=== PATIENT | female | born 1975 | race Caucasian/White ===

== ENCOUNTER → 2016-09-24 | Outpatient (REF) | payer OTHER | LOC: M LAB REF 13:55 | PROVIDERS: ATTEND Nurse Practitioner Family | DX: Z11.3 Encounter for screening for infections with a predominantly sexual mode of transmission (principal) ==

== ENCOUNTER 2017-02-03 19:45 | Emergency (ER) | payer OTHER ==
[~2017-02-03] VITALS: Ht 162.6 cm; Wt 76.4 kg
[2017-02-03 19:47] VITALS: BP 153/96
[2017-02-03] MEDS ORDERED: TIZA4CAP3 PO (19:57)
[2017-02-03] MEDS ORDERED: TRAM50TA2 PO (19:57)
[2017-02-03] MEDS ORDERED: BUPR150T5 PO (19:57)
== END 2017-02-03 21:16 | disposition left against medical advice (07) ==
LOC: M ED 19:45
DX: F33.9 Major depressive disorder, recurrent, unspecified (principal); F41.9 Anxiety disorder, unspecified; G47.9 Sleep disorder, unspecified; M51.9 Unspecified thoracic, thoracolumbar and lumbosacral intervertebral disc disorder; G89.29 Other chronic pain; Z79.899 Other long term (current) drug therapy

== ENCOUNTER 2017-02-05 11:19 | Inpatient (IN) | payer OTHER ==
[~2017-02-05] VITALS: Ht 162.6 cm; Wt 76.0 kg
[~2017-02-05 11:19] MED LIST: BUPR150T5 PO; TIZA4CAP3 PO; TRAM50TA2 PO
[2017-02-05] MEDS ORDERED: HYDR-3363 PO (11:32)
[2017-02-05 12:32] LABS: MEAN CORPUSCULAR HEMOGLOBIN 31.3 pg (27.0-33.0); MEAN CORPUSCULAR VOLUME 89.4 fl (80.0-96.0); PLATELET COUNT, AUTOMATED 292 10^3/uL (150-450); RED CELL DISTRIBUTION WIDTH 12.2 % (11.5-14.5)
[2017-02-05 12:51] LABS: CONTROL LINE HCG INT CTR LINE PRESENT
[2017-02-05] MEDS ORDERED: EXCETAB80 PO (13:04)
[2017-02-05 13:06] LABS: ALBUMIN 4.3 GM/DL (3.2-5.2); ALBUMIN/GLOBULIN RATIO 1.43 (1.00-1.93); ALKALINE PHOSPHATASE 72 U/L (45-117); ALT/SGPT 28 U/L (12-78); ANION GAP 7 MEQ/L (8-16); AST/SGOT 13 U/L (15-37); BILIRUBIN,DIRECT 0.1 MG/DL (0.0-0.2); BILIRUBIN,TOTAL 0.4 MG/DL (0.2-1.0); BLOOD UREA NITROGEN 9 MG/DL (7-18); CARBON DIOXIDE LEVEL 24 MEQ/L (21-32); CHLORIDE LEVEL 107 MEQ/L (98-107); CREATININE FOR GFR 0.86 MG/DL (0.55-1.02); GLOMERULAR FILTRATION RATE > 60.0 (>58); GLUCOSE, FASTING 108 MG/DL (70-105); POTASSIUM SERUM 4.1 MEQ/L (3.5-5.1); SODIUM LEVEL 138 MEQ/L (136-145); TOTAL PROTEIN 7.3 GM/DL (6.4-8.2)
[2017-02-05 13:18] LABS: METHADONE URINE NEGATIVE (NEGATIVE)
[2017-02-05 16:30] VITALS: BP 135/80
[2017-02-05] MEDS ORDERED: IBUPROFEN 600 MG TAB PO ONE (17:30)
[2017-02-05 18:29] VITALS: BP 135/88
[2017-02-05] MEDS ORDERED: ACETAMINOPHEN TAB 650MG DOSE (2X325MG) PO PRN (19:00)
[2017-02-05] MEDS ORDERED: MOM 30ML SUSPENSION UDC PO PRN (19:00)
[2017-02-05] MEDS ORDERED: MAALOX 30 ML SUSP *UDC PO PRN (19:00)
[2017-02-05] MEDS ORDERED: traZODone 50 MG TAB PO PRN (19:00)
[2017-02-05] MEDS: tiZANidine 4 MG TAB PO PRN (21:28)
[2017-02-05] MEDS: traMADol 50 MG TAB PO PRN (21:34)
[2017-02-05] MEDS: buPROPion **SR TABLET** (ZYBAN) 150MG PO SCH (21:34)
[2017-02-06 06:49] VITALS: BP 131/76
[2017-02-06] MEDS: buPROPion **SR TABLET** (ZYBAN) 150MG PO SCH ×3 (08:15→20:52)
[2017-02-06] MEDS: traMADol 50 MG TAB PO PRN ×2 (08:18→20:52)
[2017-02-06] MEDS: hydrOXYzine 25 MG TAB PO PRN ×2 (08:18→18:17)
--- NOTE | 2017-02-06 09:08 | HPEPDOC ---
[facility] Medical History & Physical Date of Admission Feb 05, 2017 History and Physical PCP: Stalin Carney MAINTENANCE WELDER ATTENDING: Dr. Nicolás Ortiz HPI: 41yoF admitted to [facility] for unspecified depressive disorder, being medically examined today. Patient does not voice any medical complaints today. She is reluctant to answer questions or participate with interview. She states she has pain "everywhere". She is unable to provide any further details. She states she follows with Dr. Sun for her chronic pain. Denies any fevers, chills, weakness, fatigue, CARTER, CP, SOB, cough, palpitations, abdominal pain, N/V/D or changes in bowel or bladder habits. PMHx: Depression Anxiety Chronic pain Chronic headache PSHX: Cholecystectomy SOCHX: Resides in: [place] Marital Status: Single Kids: 5 Employment: Unemployed Tobacco use: Uses e-cigarette ETOH: 4 drinks per year Illicit Drugs: Denies IV Drug Use: Denies Tattoos done unprofessionally: Denies FAMHX: Mother: Unknown Father: , brain aneurysm Siblings: 6 sisters, 2 brothers Alive, unknown Children: Alive, well Unexpected deaths due to medical reasons: None. ROS: As noted in HPI, otherwise 11pt ROS of systems reviewed and remarkable only for LMP unknown. PE: Pt with limited participation with exam. GEN: 41 yoF, appears stated age. Well-nourished, well developed. No acute distress. Alert and oriented x 3. She is agitated throughout the interview and exam. She is reluctant to answer questions. She avoids eye contact. HEENT: Normocephalic, atraumatic. Pupils are equal, round, and reactive to light. No nystagmus appreciated. Sclera are nonicteric. Conjunctiva without injection. EACs both patent BL. TMs both visualized and alarcon with good cone of light, no bulging or erythema. No facial asymmetry. Moist mucous membranes. Pharynx pink and moist. Neck supple, trachea midline. CHEST: Regular rate and rhythm, +S1, +S2 LUNGS: Clear to auscultation bilaterally. No wheezes, rales, or rhonchi. Breathing appears symmetric and easy. Patient is speaking in full sentences. No accessory muscle use. ABD: NT. +Bowel sounds present. No rebound or guarding. No costovertebral angle tenderness. EXT: No lower extremity edema appreciated. SKIN: [place], dry, warm. No rashes observed. NEURO: No focal deficits appreciated. EKG: pending. A&P: 41yoF admitted to [facility] for unspecified depressive disorder 1. Psych. Plan per Psychiatry. Obtain baseline EKG to assure the safety of psychiatric medications as they can prolong the QT interval. 2. Nicotine dependence. Patch available. 3. Chronic pain. Follows with Dr. Sun for pain management. Patient is reporting persistent pain, and low back pain therefore will request pain management opinion. Currently patient remains on her outpatient regimen of tizanidine 4 mg 3 times a day as needed and tramadol 50 mg every 6 hours as needed. Patient states she uses Excedrin Migraine for chronic pain and takes 1 tablet twice a day as needed. ISTOP his access reference #[id number] indicating tramadol 50 mg quantity #120 dispensed 01/28/[address] Sun. Will request copy of last note from Dr Sun. 4. Follow up with PCP on discharge. 5. Staff member Nay PIERCE present throughout exam. Vital Signs Vital Signs Date Time Temp Pulse Resp B/P (MAP) Pulse Ox O2 Delivery O2 Flow Rate FiO2 02/06/17 08:18 16 02/06/17 06:49 99.1 73 131/76 (94) 02/05/17 18:29 97 Room Air Laboratory Data Labs 24H Laboratory Tests 2 02/05/17 12:20: Nucleated Red Blood Cells % (auto) 0.0, Anion Gap 7L, Glomerular Filtration Rate > 60.0, Calcium Level 9.0, Aspartate Amino Transf (AST/SGOT) 13L, Alanine Aminotransferase (ALT/SGPT) 28, Alkaline Phosphatase 72, Total Bilirubin 0.4, Direct Bilirubin 0.1, Total Protein 7.3, Albumin 4.3, Albumin/Globulin Ratio 1.43, Thyroid Stimulating Hormone (TSH) 0.956, Human Chorionic Gonadotropin, Qual NEGATIVE, Salicylates Level < 1.7L, Urine Amphetamines Screen NEGATIVE, Urine Benzodiazepines Screen NEGATIVE, Urine Opiates Screen NEGATIVE, Urine Methadone Screen NEGATIVE, Acetaminophen Level < 2.0L, Urine Barbiturates Screen NEGATIVE, Urine Phencyclidine Screen NEGATIVE, Urine Cocaine Metabolite Screen NEGATIVE, Urine Cannabinoids Screen NEGATIVE, Ethyl Alcohol Level < 0.003 CBC/BMP Laboratory Tests 02/05/17 12:20 Red Blood Count 4.54, Mean Corpuscular Volume 89.4, Mean Corpuscular Hemoglobin 31.3, Mean Corpuscular Hemoglobin Concent 35.0, Red Cell Distribution Width 12.2 Home Medications Scheduled Bupropion Hcl (Bupropion HCl Sr) 150 Mg Tab, 150 MG PO BID Scheduled PRN Acetaminophen/Aspirin/Caffein (Excedrin Migraine 250-250-65 mg) 1 Tab Tab, 1 TAB PO BID PRN for PAIN Hydroxyzine HCl (Hydroxyzine HCl) 25 Mg Tab, 25 MG PO Q8H PRN for ANXIETY Tizanidine Hydrochloride (Tizanidine HCl) 4 Mg Cap, 4 MG PO TID PRN for SPASMS Tramadol HCl (Tramadol HCl) 50 Mg Tab, 50 MG PO Q6H PRN for PAIN Allergies Coded Allergies: No Known Allergies (Unverified , 02/03/17) Lynn Lopez Feb 06, 2017 09:08
[2017-02-06] MEDS ORDERED: VENLAFAXINE **XR** 37.5 MG CAPSULE PO ONE (10:15)
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
[2017-02-06] MEDS: EXCEDRIN MIGRAINE TABLET PO PRN ×2 (15:08→20:52)
[2017-02-06 18:00] VITALS: BP 121/60
[2017-02-06] MEDS: traZODone 100 MG TAB PO SCH (20:52)
[2017-02-06] MEDS: tiZANidine 4 MG TAB PO PRN (20:52)
[2017-02-07 06:53] VITALS: BP 116/76
[2017-02-07] MEDS: VENLAFAXINE **XR** 75MG CAPSULE PO SCH (08:05)
[2017-02-07] MEDS: buPROPion **SR TABLET** (ZYBAN) 150MG PO SCH ×2 (08:05→21:24)
[2017-02-07] MEDS: traMADol 50 MG TAB PO PRN ×2 (08:05→21:25)
[2017-02-07] MEDS: hydrOXYzine 25 MG TAB PO PRN ×2 (08:20→16:35)
--- NOTE | 2017-02-07 15:21 | MHIPN ---
DATE: 02/07/2017 CHIEF COMPLAINT: Says feels okay. SUBJECTIVE: Seen for followup in the presence of staff. Says has felt cold while here. Indicates feels good as regard to her moods. Denies feeling depressed. Denies feeling suicidal. Says is sleeping okay. MENTAL STATUS EXAMINATION: Neat, cooperative, but superficially so, and often somewhat guarded. No agitation. No psychomotor retardation. Answers questions very briefly but coherently, mostly one-word answers. Denies any suicidal thoughts or intents. No homicidal ideas or intents. No evidence of any psychosis. Affect is incongruent with mood. Judgment and insight remain quite questionable. ASSESSMENT: 1. Major depressive disorder. 2. Posttraumatic stress disorder by history. PLAN: Continue current care. She has been started on venlafaxine at 75 mg daily, and I understand the plan is to taper the Wellbutrin slowly while building up the dose of the venlafaxine. She quite likely minimizes her difficulties. She is to be encouraged to participate in activities in the unit. VITAL SIGNS: Blood pressure 116/76, pulse 72, temperature 98.3.
[2017-02-07 18:06] VITALS: BP 113/61
[2017-02-07] MEDS: tiZANidine 4 MG TAB PO PRN (21:24)
[2017-02-07] MEDS: traZODone 100 MG TAB PO SCH (21:24)
[2017-02-08 06:00] VITALS: BP 94/51
[2017-02-08] MEDS: buPROPion **SR TABLET** (ZYBAN) 150MG PO SCH ×2 (08:52→21:37)
[2017-02-08] MEDS: VENLAFAXINE **XR** 75MG CAPSULE PO SCH (08:52)
[2017-02-08] MEDS: traMADol 50 MG TAB PO PRN ×2 (08:55→21:38)
--- NOTE | 2017-02-08 17:51 | MHIPN ---
DATE: 02/08/2017 CHIEF COMPLAINT: Says feels okay. SUBJECTIVE: Seen for followup, in the presence of staff. Says feels okay, and that her moods are good. She says sleep has been better, as is appetite. She also spoke of having tremors, says has had them for about a year or so, both hands. Says they tend to worsen when stressed. Says is not sure if her primary care is aware of this. Denies any history of family tremors. MENTAL STATUS EXAMINATION: Neat. Cooperative though somewhat superficially so, at times a bit guarded, answers questions briefly, logically, coherently. Affect is restricted but reactive. Does have tremors upper limbs. Denies any suicidal thoughts or intents. No homicidal ideas or intents. No evidence of any psychosis. Cognition grossly intact. Judgment and insight remain questionable. ASSESSMENT: 1. Major depressive disorder. 2. Posttraumatic stress disorder by history. PLAN: Continue cross tapering venlafaxine and Wellbutrin. I would suggest the venlafaxine is increased to a total of 112.5 mg tomorrow, the Wellbutrin decreased to 150 mg daily. Being on Wellbutrin may well cause tremors, but other causes ought to be assessed as well. I would suggest that she followup with primary care, and she may require an assessment by neurology as an outpatient. She is to be encouraged to participate in activities in the unit. She will be seeing the treatment team tomorrow.
[2017-02-08 18:00] VITALS: BP 110/54
[2017-02-08] MEDS: tiZANidine 4 MG TAB PO PRN (21:37)
[2017-02-08] MEDS: traZODone 100 MG TAB PO SCH (21:37)
[2017-02-09 06:31] VITALS: BP 98/50
[2017-02-09] MEDS: VENLAFAXINE **XR** 75MG CAPSULE PO SCH (08:43)
[2017-02-09] MEDS: traMADol 50 MG TAB PO PRN ×2 (08:43→21:55)
[2017-02-09] MEDS ORDERED: buPROPion **XL** TABLET 150MG (WELLBUTRIN XL) PO SCH (09:00)
[2017-02-09] MEDS ORDERED: VENLAFAXINE **XR** 37.5 MG CAPSULE PO SCH (09:00)
[2017-02-09] MEDS ORDERED: traZODone 25MG PER 1/2 TABLET PO PRN (09:30)
--- NOTE | 2017-02-09 14:47 | MHIPN ---
DATE OF SERVICE: 02/09/2017 41-year-old female with history of post-traumatic stress disorder (PTSD), depression, admitted to our unit with symptoms compatible with severe depression and suicidal ideation. MEDICATIONS: - Wellbutrin XL 100 mg by mouth daily - Trazodone 100 mg by mouth at bedtime - Effexor XR 75 mg by mouth every a.m. SUBJECTIVE: "I am feeling a little better, I am no longer crying all the time". OBJECTIVE: Patient continues depressed, but reports improvement. Patient is able to contact for safety during the interview. Patient denies side effects from the medications. Reports some degree of sedation in the morning secondary to trazodone. Patient appears to be motivated for treatment. Discussed the treatment plan with patient. MENTAL STATUS EXAMINATION: Patient is dressed in [facility]. Patient is clean and well groomed. Patient has fair eye contact. Speech is soft and monotone. Mood is depressed and anxious, but somewhat improved from admission. Affect is somewhat restricted. No delusions or hallucinations. 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 Patient is fully oriented. Associations are intact. Thinking is logically. Thought content is appropriate. Patient was able to contract for safety during the interview and denies suicidal or homicidal ideation. Insight and judgment is limited. ASSESSMENT: 1. Major depressive disorder. 2. Post-traumatic stress disorder (PTSD). PLAN: 1. Decrease Wellbutrin to 75 mg by mouth every a.m. 2. Decrease Trazodone to 50 mg by mouth at bedtime 3. Continue Effexor XR 75 mg by mouth every a.m. 4. Continue medication management, individual and group therapy.
[2017-02-09 18:00] VITALS: BP 131/72
[2017-02-09] MEDS ORDERED: tiZANidine 4 MG TAB PO SCH (21:00)
[2017-02-09] MEDS: traZODone 50 MG TAB PO SCH (21:54)
[2017-02-10 07:01] VITALS: BP 106/54
[2017-02-10] MEDS ORDERED: buPROPion 75 MG TAB PO SCH (09:00)
[2017-02-10] MEDS: VENLAFAXINE **XR** 75MG CAPSULE PO SCH (09:17)
[2017-02-10] MEDS: traMADol 50 MG TAB PO PRN ×2 (09:18→21:54)
[2017-02-10] MEDS: tiZANidine 4 MG TAB PO PRN ×2 (12:12→21:54)
--- NOTE | 2017-02-10 15:29 | IPN ---
DATE: 02/10/2017 A 41-year-old female with history of posttraumatic stress disorder (PTSD) and depression admitted to our unit with severe symptoms of depression and suicidal ideation. MEDICATIONS: - Effexor XR 75 mg by mouth every morning - Wellbutrin XL 75 mg by mouth daily tapering dose - trazodone 50 mg by mouth at bedtime SUBJECTIVE: "I'm feeling better, when can I be discharged?" OBJECTIVE: The patient is improving slowly. The patient is minimizing symptoms in order to be discharged soon. I am not sure if the patient's judgment call and statements are reliable. The patient has refused to sign release of information for her mother and ex-boyfriend. geriatric social worker reports that she is on probation but she did not tell anybody. It was found this morning after receiving a phone call. MENTAL STATUS EXAMINATION: The patient is dressed in [facility]. The patient is clean and well-groomed. She has fair eye contact. Speech is soft and monotone. Mood is depressed and anxious. Affect is restricted. No delusions or hallucinations. Memory, attention and concentration are fair. The patient is fully oriented. Associations are intact. Thinking is logical. Thought content is appropriate. The patient was able to contract for safety during the interview. She denies suicidal or homicidal ideation, but again she is focused on discharge and maybe not reliable. Insight and judgment is limited. ASSESSMENT: 1. Major depressive disorder. 2. Posttraumatic stress disorder (PTSD). PLAN: 1. Discontinue Wellbutrin. 2. Continue Effexor XR 75 mg by mouth every morning. 3. Continue trazodone 50 mg by mouth at bedtime. 4. Continue medication management, individual and group therapy.
[2017-02-10 18:00] VITALS: BP 118/71
[2017-02-10] MEDS: traZODone 50 MG TAB PO SCH (21:54)
[2017-02-11 06:38] VITALS: BP 96/53
[2017-02-11] MEDS: tiZANidine 4 MG TAB PO PRN ×2 (09:27→21:46)
[2017-02-11] MEDS: VENLAFAXINE **XR** 75MG CAPSULE PO SCH (09:27)
[2017-02-11] MEDS: traMADol 50 MG TAB PO PRN ×2 (09:27→21:46)
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
[2017-02-11 18:00] VITALS: BP 138/87
[2017-02-11] MEDS: traZODone 50 MG TAB PO SCH (21:45)
[2017-02-12 07:04] VITALS: BP 125/71
[2017-02-12] MEDS: traMADol 50 MG TAB PO PRN (08:34)
[2017-02-12] MEDS: tiZANidine 4 MG TAB PO PRN (08:34)
[2017-02-12] MEDS: VENLAFAXINE **XR** 75MG CAPSULE PO SCH (08:34)
[2017-02-12] MEDS ORDERED: VENL75CA47 PO (14:38)
[2017-02-12] MEDS ORDERED: TRAZO50TA PO (14:38)
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
--- NOTE | 2017-02-18 16:47 | CR ---
DATE OF CONSULTATION: 02/09/2017 CONSULTATION REPORT FOR: Dr. Carey CHIEF COMPLAINT: 1. Low back pain. 2. Right leg pain. HISTORY OF PRESENT ILLNESS: Carli is a pleasant 41-year-old female who suffers from chronic pain and follows with Dr. Sun in the [facility] for chronic pain. States that she uses tizanidine 4 mg as needed which is helpful. She also finds tramadol 50 mg every six hours as needed as helpful. Rating her pain level as a 6/10. Chief area of pain is right low back with radiation into right leg. Denies recent fever, illness or weight loss. Denies bowel or bladder incontinence. PAST MEDICAL HISTORY: 1. Headache. 2. Chronic pain. 3. Anxiety/depression. PAST SURGICAL HISTORY: 1. (C) section. 2. Cholecystectomy. SOCIAL HISTORY: Lives alone in [place]. States that she has five children that she has been recently estranged from. Denies problems with alcohol or drugs. FAMILY HISTORY: Mother is unknown. Father is due to brain aneurysm. Children are alive and well. Siblings are alive and medical history unknown. REVIEW OF SYSTEMS: An 11-point review of systems reviewed and remarkable only for complaints listed in the history of present illness (HPI). PHYSICAL EXAMINATION: The patient is a awake, alert and cooperative. VITAL SIGNS: Temperature 97.8, pulse 70, respiratory rate 20, blood pressure 98/50. CARDIAC: S1, S2, normal rate and rhythm. RESPIRATORY: Lung sounds clear. Respirations nonlabored. NEUROMUSCULAR: Muscle strength and tone of the upper and lower extremities 5/5. NEUROLOGIC: Deep tendon reflexes 1-2+ over 4, upper and lower extremities. Normal sensation to light touch, lower extremities. INSPECTION OF SPINE: Specific point tenderness noted over right sacroiliac joint (SIJ). Tenderness over lumbosacral (LS) axis and lumbosacral paraspinal region. Range of joint motion of the spine is limited with reports of increased pain with both flexion and extension at less than 45 degrees. ASSESSMENT: 1. Chronic low back pain. 2. Sacral iliac joint pain, right. PLAN: The patient states that she would never be interested in injection therapy. Recommend continuing current pain medications during inpatient stay. Continue use of tizanidine as needed for severe pain. Continue followup with Dr. Sun. Thank you for allowing us to participate in the care of your patient. If you have any questions or concerns, please do not hesitate to contact me. RORY
== END 2017-02-12 16:20 | disposition home or self-care (01) | DRG 754 ==
LOC: M ED 11:19 → M ED INP 16:19 → M PSY 17:35
PROVIDERS: ADMIT Psychiatry & Neurology Psychiatry; ATTEND Psychiatry & Neurology Psychiatry
DX: F32.9 Major depressive disorder, single episode, unspecified (principal); F17.290 Nicotine dependence, other tobacco product, uncomplicated; F43.10 Post-traumatic stress disorder, unspecified; G89.29 Other chronic pain; Z79.899 Other long term (current) drug therapy; Z90.49 Acquired absence of other specified parts of digestive tract

== ENCOUNTER → 2017-04-08 | Outpatient (REF) | payer MEDICAID, OTHER, SELFPAY ==
[~2017-04-08] MED LIST changes: +EXCETAB80 PO; +HYDR-3363 PO; +TRAZO50TA PO; +VENL75CA47 PO
== END ==
LOC: M LABDRAW1 11:40
PROVIDERS: ATTEND Physical Medicine & Rehabilitation
DX: M51.36 Other intervertebral disc degeneration, lumbar region (principal)

== ENCOUNTER → 2017-06-02 | Outpatient (CLI) | payer OTHER | LOC: M RAD 12:13 | DX: M47.812 Spondylosis without myelopathy or radiculopathy, cervical region (principal) | CPT/HCPCS: 72141 ==

== ENCOUNTER → 2018-07-28 | Outpatient (REF) | payer OTHER ==
[~2018-07-28] MED LIST changes: +TIZA4CAP PO; -TIZA4CAP3 PO
[2018-07-28 19:51] LABS: BASO # 0.1 10^3/uL (0.0-0.2); BASO % 0.6 % (0.0-1.0); EOS # 0.1 10^3/uL (0.0-0.50); EOS % 1.3 % (0.0-3.0); HEMATOCRIT 42.9 % (36.0-47.0); HEMOGLOBIN 14.7 g/dl (12.0-15.5); LYMPH # 2.1 10^3/uL (1.5-4.5); LYMPH % 25.5 % (24.0-44.0); MEAN CORPUSCULAR HEMOGLOBIN 30.8 pg (27.0-33.0); MEAN CORPUSCULAR HGB CONC 34.3 g/dl (32.0-36.5); MEAN CORPUSCULAR VOLUME 89.7 fl (80.0-96.0); MONO # 0.7 10^3/uL (0.0-0.8); MONO % 8.5 % (0.0-5.0); NEUTROPHILS # 5.2 10^3/uL (1.8-7.7); NEUTROPHILS % 63.7 % (36.0-66.0); PLATELET COUNT, AUTOMATED 304 10^3/uL (150-450); RED BLOOD COUNT 4.78 10^6/uL (4.00-5.40); WHITE BLOOD COUNT 8.2 10^3/uL (4.0-10.0)
[2018-07-28 19:54] LABS: ALBUMIN 4.1 GM/DL (3.2-5.2); ALT/SGPT 23 U/L (12-78); BILIRUBIN,TOTAL 0.4 MG/DL (0.2-1.0); BLOOD UREA NITROGEN 9 MG/DL (7-18); CARBON DIOXIDE LEVEL 25 MEQ/L (21-32); CHLORIDE LEVEL 104 MEQ/L (98-107); CHOLESTEROL LEVEL 185 MG/DL (<200); CHOLESTEROL RISK RATIO 5.967 (<5); CREATININE FOR GFR 0.69 MG/DL (0.55-1.30); GLOMERULAR FILTRATION RATE > 60.0 (>58); GLUCOSE, FASTING 101 MG/DL (70-100); HDL CHOLESTEROL 31 MG/DL (>40); NON-HDL-C 154 MG/DL; POTASSIUM SERUM 4.2 MEQ/L (3.5-5.1); SODIUM LEVEL 136 MEQ/L (136-145); TOTAL PROTEIN 7.8 GM/DL (6.4-8.2); TRIGLYCERIDES LEVEL 434 MG/DL (<150)
[2018-07-28 19:55] LABS: TOTAL 25(OH) VITAMIN D 14.8 NG/ML (30.0-100.0)
[2018-07-28 19:59] LABS: HEMOGLOBIN A1c 5.8 %
== END ==
LOC: M LAB REF 19:17
PROVIDERS: ATTEND Nurse Practitioner Family
DX: Z13.9 Encounter for screening, unspecified (principal)

== ENCOUNTER → 2019-01-28 | Outpatient (REF) | payer OTHER ==
[~2019-01-28] MED LIST changes: +TRAZ1TAB10 PO; -TRAZO50TA PO
[2019-02-01 14:40] LABS: HPV HYBRID CAPTURE II Negative (Negative)
== END ==
LOC: M LAB REF 17:37
PROVIDERS: ATTEND Advanced Practice Midwife
DX: N76.0 Acute vaginitis (principal)

== ENCOUNTER → 2020-08-23 | Outpatient (CLI) | payer OTHER ==
--- NOTE | 2020-08-23 14:23 | REP ---
INDICATION: SPINAL STENOSIS. COMPARISON: Comparison MRI study of the cervical spine June 02, 2017.. TECHNIQUE: Sagittal and axial T1 and T2-weighted scans are acquired in the usual fashion with and without fat saturation. Sequences include spin echo, turbo spin-echo, and STIR imaging sequences. FINDINGS: Cervical vertebral body heights are preserved and alignment is normal. Cortical and medullary bone signal intensity are normal. Cervical cord is normal in course, caliber, and signal intensity on T1 and T2 weighted scans. A mild goiter is again noted unchanged. Axial and sagittal images taken at C2-C3 show no significant abnormality. At C3-C4 there is mild disc space narrowing and diffuse disc bulging is seen indenting the ventral margin of the thecal sac. This is unchanged from the 2018 prior study. No cord compression is seen. No neural foraminal narrowing is observed. At C4-5, there is no evidence of spinal stenosis or foraminal narrowing. No disc protrusion is seen. At C5-6 there is disc space narrowing and diffuse disc bulging indenting the ventral margin of the thecal sac. There is mild uncovertebral spurring on the left. This is unchanged. No spinal cord compression is seen. Neural foramina appear adequate. At C6-C7, there is degenerative disc narrowing and mild diffuse disc bulging. This is unchanged from the prior study. The C7-T1 level is unremarkable. IMPRESSION: Degenerative spondylosis with degenerative disc changes most pronounced at C3-4 C5-6 and C6-7. Diffuse disc bulging is seen at these levels without cord compression. No significant change from the 2018 prior study. <Electronically signed by Paul Méndez > 08/23/20 [id number]
== END ==
LOC: M RAD 11:31
PROVIDERS: ATTEND Physician Assistant
DX: M43.02 Spondylolysis, cervical region (principal); M50.20 Other cervical disc displacement, unspecified cervical region

== ENCOUNTER → 2021-11-06 | Outpatient (CLI) | payer OTHER ==
[~2021-11-06] MED LIST changes: +BUPR-71 PO; -BUPR150T5 PO
== END ==
LOC: M RAD 17:29
PROVIDERS: ATTEND Chiropractor
DX: M51.36 Other intervertebral disc degeneration, lumbar region (principal); M99.03 Segmental and somatic dysfunction of lumbar region; M54.13 Radiculopathy, cervicothoracic region; M99.01 Segmental and somatic dysfunction of cervical region

== ENCOUNTER → 2023-04-27 | Outpatient (REF) | payer OTHER ==
[~2023-04-27] MED LIST changes: +CELE0.09; +GUAI1SOL2 PO
[2023-04-27 17:56] LABS: ALBUMIN 3.9 G/DL (3.2-5.2); ALKALINE PHOSPHATASE 58 U/L (46-116); ALT/SGPT 10 U/L (7.0-40); AST/SGOT 10 U/L (<34); BILIRUBIN,TOTAL 0.6 MG/DL (0.3-1.2); BLOOD UREA NITROGEN 13 MG/DL (9-23); CARBON DIOXIDE LEVEL 25 MMOL/L (20-31); CHLORIDE LEVEL 110 MMOL/L (98-107); CHOLESTEROL LEVEL 144 MG/DL (<200); CHOLESTEROL RISK RATIO 3.94 (<5); CREATININE FOR GFR 0.68 MG/DL (0.55-1.30); GLOMERULAR FILTRATION RATE > 60.0 (>58); GLUCOSE, FASTING 90 MG/DL (60-100); HDL CHOLESTEROL 36.5 MG/DL (>40); LDL CHOLESTEROL 86.3 MG/DL (<100); NON-HDL-C 107.5 MG/DL; POTASSIUM SERUM 4.6 MMOL/L (3.5-5.1); SODIUM LEVEL 138 MMOL/L (136-145); TOTAL PROTEIN 7.1 G/DL (5.7-8.2); TRIGLYCERIDES LEVEL 106 MG/DL (<150)
[2023-04-27 17:58] LABS: THYROID STIMULATING HORMONE 1.448 uIU/ML (0.55-4.78); TOTAL 25(OH) VITAMIN D 24.9 NG/ML (20.0-100.0)
[2023-04-27 18:07] LABS: HEMOGLOBIN A1c 5.4 % (4.0-6.0)
== END ==
LOC: M LAB REF 16:40
PROVIDERS: ATTEND Nurse Practitioner Family
DX: E55.9 Vitamin D deficiency, unspecified (principal); R73.03 Prediabetes; E78.5 Hyperlipidemia, unspecified

== ENCOUNTER → 2023-12-28 | Outpatient (REF) | payer OTHER | LOC: M LAB REF 16:18 | PROVIDERS: ATTEND Physician Assistant | DX: Z79.899 Other long term (current) drug therapy (principal) ==

== ENCOUNTER → 2024-02-15 | Outpatient (REF) | payer OTHER ==
[~2024-02-15] MED LIST changes: +EXCETAB22 PO; +PREG50CA PO
== END ==
LOC: M LAB REF 16:20
PROVIDERS: ATTEND Physician Assistant
DX: G89.29 Other chronic pain (principal); M54.16 Radiculopathy, lumbar region; M54.50 Low back pain, unspecified